=== PATIENT | female | born 2005 | race Caucasian/White ===

== ENCOUNTER 2024-12-06 12:22 | Emergency (ER) | payer BC ==
[~2024-12-06] VITALS: Ht 165.1 cm; Wt 72.6 kg
[2024-12-06 12:31] VITALS: BP 106/68; TEMP 98.3; O2SAT 96
[2024-12-06] MEDS ORDERED: DEXA0.5E PO (13:04)
[2024-12-06] MEDS ORDERED: TETR-65 PO (13:04)
== END 2024-12-06 13:10 | disposition home or self-care (01) ==
LOC: ER 12:34
DX: K12.0 Recurrent oral aphthae (principal); J39.2 Other diseases of pharynx